=== PATIENT | male | born 1945 | race Caucasian/White ===

== ENCOUNTER 2023-11-15 08:13 | Emergency (ER) | payer MEDICARE, OTHER, SELFPAY ==
[2023-11-15 08:15] VITALS: BP 192/105; PULSE 90; RESP 19; TEMP 36.6; O2SAT 98; BMI 31.3
--- NOTE | 2023-11-15 08:40 | ED_ITS ---
HPI - Ear Problem General Chief complaint: Ear Problems Stated complaint: Hearing aid stuck in L ear Time Seen by Provider: 11/15/23 08:33 Source: patient Mode of arrival: ambulatory Limitations: no limitations History of Present Illness HPI Narrative: 77-year-old male here with complaints of bilateral hearing aids stuck in his ear.? No additional complaints Related Data Allergies Allergy/AdvReac Type Severity Reaction Status Date / Time No Known Allergies Allergy Verified 11/15/23 08:16 Review of Systems Review of Systems: Yes all other systems are reviewed and are negative Constitutional: Constitutional: Reports no additional constitutional complaints, Denies body ache(s), Denies chills, Denies fever(s), Denies headache(s) and Denies weakness Eyes: Eyes: Reports no additional eye complaints and Denies change in vision ENT: Reports system reviewed and no additional complaints, except as documented, Denies dizziness, Denies headache(s), Denies nasal congestion, Denies nasal discharge and Denies neck pain Cardiovascular: Cardiovascular: Reports no additional cardiovascular complaints, Denies chest pain, Denies leg edema and Denies dyspnea Respiratory: Respiratory: Reports no additional respiratory complaints, Denies cough and Denies dyspnea Gastrointestinal: Gastrointestinal: Reports no additional gastrointestinal complaints, Denies abdominal pain, Denies diarrhea, Denies nausea and Denies vomiting Genitourinary: Genitourinary: Denies urinary incontinence Musculoskeletal: Musculoskeletal: Reports no additional musculoskeletal complaints, Denies back pain, Denies arthralgias, Denies joint swelling, Denies neck pain, Denies numbness and Denies tingling Integumentary/Breasts: Skin/Breast: Reports system reviewed and no additional complaints, except as docu and Denies rash Neurologic: Reports system reviewed and no additional complaints, except as documented, Denies dizziness, Denies headache(s), Denies numbness, Denies tingling and Denies weakness [facility] Past Medical History Attestation statement: The following information was validated with the patient. Source: old records reviewed and nursing notes reviewed Social History Social History Advance Directives: No Advance Directives Information Provided: Yes Physical Exam Vital Signs: Vital Signs: Last Vital Signs Temp 98 F 11/15/23 08:15 Pulse 90 11/15/23 08:15 Resp 19 11/15/23 08:15 BP 192/105 H 11/15/23 08:15 Pulse Ox 98 11/15/23 08:15 O2 Del Method Room Air 11/15/23 08:15 BMI result Body Mass Index 31.3 Const: General: cooperative, healthy appearing, comfortable and no acute distress Orientation/consciousness: patient oriented x3 Limitations: no limitations HEENT: Head: Yes normal to inspection Ears: external ears normal, TM's normal bilaterally, EAC's normal, mastoids normal, no periauricular adenopathy and other (hearing aids removed-foam cushion present in ear canal ) Eyes: General: appearance normal, both eyes and all related structures Neck: Neck: Yes normal visual inspection Resp: Effort & Inspection: normal respiratory effort Skin: General skin exam: no rashes or lesions noted Neuro: General: patient oriented x3 and moves all extremities Gait exam (Neuro): Normal gait present Procedures Foreign Body Removal Site: ear (bilateral) Description of foreign body: other (cushion from hearing aid) Technique: removal with forceps Confirmed by:: direct visualization Complications: none Medical Decision Making Medical Decision Making MDM Narrative: 77-year-old male here with complaints of bilateral hearing aids stuck in his ear.? No additional complaints hearing aids removed-foam cushion present in ear canal? Removed without incident Differential Diagnosis Differential Diagnoses: The differential diagnosis associated with the presentation includes retained fb AOM, otitis externa, perf TM Admission/Observation Consideration of admission/observation: Escalation of care including admission/observation considered FB noted-removed without incident, no need for ENT consult Discharge Plan Discharge Clinical Impression: Ear foreign body Patient Disposition: Home, Self-Care Instructions: Ear Foreign Body (ED) Referrals: Physician,Darin J [Primary Care Provider] - 10 days Print Language: Maltese
[2023-11-15 08:55] VITALS: BP 158/86; PULSE 80; RESP 18; TEMP 36.6; O2SAT 98
== END 2023-11-15 08:56 | disposition home or self-care (01) ==
PROVIDERS: Emergency Provider Emergency Medicine
DX: T16.2XXA Foreign body in left ear, initial encounter (principal); T16.1XXA Foreign body in right ear, initial encounter; W44.G1XA Audio device entering into or through a natural orifice, initial encounter; Y93.9 Activity, unspecified; Y92.9 Unspecified place or not applicable; Y99.9 Unspecified external cause status
CPT/HCPCS: 69200; 99282; 99284